=== PATIENT | female | born 1970 | race Caucasian/White ===

== ENCOUNTER 2021-07-30 00:59 | Inpatient (IN) | payer OTHER ==
[~2021-07-30] VITALS: Ht 152 cm; Wt 93.0 kg
[2021-07-30] MEDS ORDERED: ATENOLOL25 MG PO (03:32)
[2021-07-30] MEDS ORDERED: HYZAAR 100-251 EACH PO (03:32)
[2021-07-30 05:26] LABS: HEMOGLOBIN 14.8 gm/dl (12.3-15.3); RED BLOOD COUNT 4.65 M/UL (4.00-5.10); WHITE BLOOD COUNT 4.2 K/UL (4.5-11.0)
[2021-07-30 05:51] LABS: BUN/CREATININE RATIO 53 (0-10)
--- NOTE | 2021-07-30 22:07 | NUR ---
1900-ASKED PATIENT IF SHE WANTED ME TO WIPE HER OFF AND GIVE HER A BATH AND SHE REFUSED BED BATH SAID SHED RATHER HAVE A SHOWER. EXPLAINED TO PATIENT RISKS OF GETTING UP TO SHOWER AND HER OXYGEN LEVELS DROPPING. PATIENT SAID WE MAY WIPE HER OFF LATER. 2100-GOT PATIENT UP TO VOID AT [facility] AND SHE HAD USED THE BATHROOM ON HERSELF. SHE WAS VERY UPSET AND I EXPLAINED TO HER THAT SOMETIMES ACCIDENTS HAPPEN AND THAT IT WAS OKAY WE WOULD GET HER CLEANED UP. PATIENT WANTED TO MALLOY HER GOWN AND WAS UPSET THAT SHE COULDN'T SHOWER. I ONCE AGAIN EXPLAINED TO PATIENT THE RISKS OF GETTING UP TO THE SHOWER. I TOLD HER ONCE I GOT HER BACK IN THE BED THAT I WOULD CHANGE HER GOWN. 2200-PATIENT HAD TAKEN HER BP CUFF OFF HER ARM SO I WENT IN AND SHE SAID IT WAS SQUEEZING HER ARM OFF SO I EXPLAINED TO HER THAT IT WAS GOING TO GET TIGHT TO GET HER BP AND THAT SHE HAD TO KEEP THE CUFF ON SO THAT WE COULD MONITOR HER BP. PATIENT STATED THAT I WAS HOLLERING AT HER, SHE WAS ON THE PHONE WITH A FAMILY MEMBER AND WAS UPSET STATING THAT SHE WAS GOING TO SIGN HERSELF OUT TOMORROW AND HER FAMILY KEPT TELLING HER THAT SHE COULDN'T DO THAT. I TOLD PATIENT THAT I WASN'T TRYING TO SCREAM AT HER THAT I WAS JUST TRYING TO EXPLAIN TO HER THAT WE HAD TO MONITOR HER BP.
[2021-07-31 05:15] LABS: HEMOGLOBIN 14.9 gm/dl (12.3-15.3); RED BLOOD COUNT 4.74 M/UL (4.00-5.10)
[2021-07-31 05:17] LABS: WHITE BLOOD COUNT 7.4 K/UL (4.5-11.0)
[2021-07-31 06:12] LABS: BUN/CREATININE RATIO 62 (0-10)
[2021-08-01 05:05] LABS: HEMOGLOBIN 15.5 gm/dl (12.3-15.3); RED BLOOD COUNT 4.83 M/UL (4.00-5.10); WHITE BLOOD COUNT 7.3 K/UL (4.5-11.0)
[2021-08-01 05:26] LABS: BUN/CREATININE RATIO 53 (0-10)
[2021-08-02 04:41] LABS: HEMOGLOBIN 15.6 gm/dl (12.3-15.3); RED BLOOD COUNT 4.93 M/UL (4.00-5.10)
[2021-08-02 04:57] LABS: BUN/CREATININE RATIO 50 (0-10)
[2021-08-03 05:04] LABS: HEMOGLOBIN 15.8 gm/dl (12.3-15.3); RED BLOOD COUNT 4.99 M/UL (4.00-5.10); WHITE BLOOD COUNT 8.1 K/UL (4.5-11.0)
[2021-08-03 05:28] LABS: BUN/CREATININE RATIO 46 (0-10)
[2021-08-04 05:34] LABS: HEMOGLOBIN 16.4 gm/dl (12.3-15.3); RED BLOOD COUNT 5.14 M/UL (4.00-5.10); WHITE BLOOD COUNT 6.5 K/UL (4.5-11.0)
[2021-08-04 05:59] LABS: BUN/CREATININE RATIO 61 (0-10)
--- NOTE | 2021-08-05 04:44 | NUR ---
PT O2 SAT 87-92 DESPITE 100 % FIO2 ON BIPAP. MD AWARE WITH NEW ORDERS RECIEVED AND NTD. PT DOES NOT FEEL LIKE SHE NEEDS TO BE INTUBATED AT THIS TIME AND IS NOT COMPLAINING OF SOA AND DENIES ANY SYMPTOMS OF RESPIRATORY DISTRESS. MD AWARE
[2021-08-05 05:55] LABS: HEMOGLOBIN 17.5 gm/dl (12.3-15.3); RED BLOOD COUNT 5.52 M/UL (4.00-5.10)
[2021-08-05 06:26] LABS: BUN/CREATININE RATIO 45 (0-10)
[2021-08-06 04:28] LABS: HEMOGLOBIN 18.4 gm/dl (12.3-15.3); RED BLOOD COUNT 5.73 M/UL (4.00-5.10)
[2021-08-06 04:38] LABS: WHITE BLOOD COUNT 9.4 K/UL (4.5-11.0)
[2021-08-06 05:05] LABS: BUN/CREATININE RATIO 42 (0-10)
[2021-08-07 05:33] LABS: HEMOGLOBIN 17.5 gm/dl (12.3-15.3); RED BLOOD COUNT 5.49 M/UL (4.00-5.10)
[2021-08-07 05:57] LABS: WHITE BLOOD COUNT 13.8 K/UL (4.5-11.0)
[2021-08-07 06:10] LABS: BUN/CREATININE RATIO 57 (0-10)
[2021-08-08 08:43] LABS: RED BLOOD COUNT 5.28 M/UL (4.00-5.10); WHITE BLOOD COUNT 14.3 K/UL (4.5-11.0)
[2021-08-08 09:03] LABS: BUN/CREATININE RATIO 58 (0-10)
[2021-08-09 04:59] LABS: HEMOGLOBIN 15.5 gm/dl (12.3-15.3); RED BLOOD COUNT 4.83 M/UL (4.00-5.10); WHITE BLOOD COUNT 16.6 K/UL (4.5-11.0)
[2021-08-09 05:42] LABS: BUN/CREATININE RATIO 76 (0-10)
[2021-08-10 05:16] LABS: HEMOGLOBIN 14.7 gm/dl (12.3-15.3); RED BLOOD COUNT 4.63 M/UL (4.00-5.10); WHITE BLOOD COUNT 15.2 K/UL (4.5-11.0)
[2021-08-10 05:39] LABS: BUN/CREATININE RATIO 111 (0-10)
[2021-08-11 04:47] LABS: HEMOGLOBIN 13.3 gm/dl (12.3-15.3); RED BLOOD COUNT 4.22 M/UL (4.00-5.10); WHITE BLOOD COUNT 11.6 K/UL (4.5-11.0)
[2021-08-11 05:48] LABS: BUN/CREATININE RATIO 104 (0-10)
[2021-08-12 03:38] LABS: HEMOGLOBIN 13.1 gm/dl (12.3-15.3); RED BLOOD COUNT 4.1 M/UL (4.00-5.10)
[2021-08-12 03:39] LABS: WHITE BLOOD COUNT 16.2 K/UL (4.5-11.0)
[2021-08-12 04:08] LABS: BUN/CREATININE RATIO 66 (0-10)
[2021-08-13 05:11] LABS: HEMOGLOBIN 12.8 gm/dl (12.3-15.3); RED BLOOD COUNT 4.06 M/UL (4.00-5.10); WHITE BLOOD COUNT 15.5 K/UL (4.5-11.0)
[2021-08-13 05:35] LABS: BUN/CREATININE RATIO 69 (0-10)
[2021-08-14 03:12] LABS: HEMOGLOBIN 13.5 gm/dl (12.3-15.3); RED BLOOD COUNT 4.3 M/UL (4.00-5.10); WHITE BLOOD COUNT 12.4 K/UL (4.5-11.0)
[2021-08-14 03:36] LABS: BUN/CREATININE RATIO 56 (0-10)
[2021-08-15 05:36] LABS: RED BLOOD COUNT 3.86 M/UL (4.00-5.10)
[2021-08-15 05:49] LABS: BUN/CREATININE RATIO 62 (0-10)
[2021-08-16 05:13] LABS: HEMOGLOBIN 12.8 gm/dl (12.3-15.3); RED BLOOD COUNT 4.08 M/UL (4.00-5.10); WHITE BLOOD COUNT 12.3 K/UL (4.5-11.0)
[2021-08-16 06:29] LABS: BUN/CREATININE RATIO 96 (0-10)
[2021-08-17 03:56] LABS: HEMOGLOBIN 12.5 gm/dl (12.3-15.3); RED BLOOD COUNT 3.93 M/UL (4.00-5.10); WHITE BLOOD COUNT 11.1 K/UL (4.5-11.0)
[2021-08-17 04:21] LABS: BUN/CREATININE RATIO 98 (0-10)
[2021-08-18 05:35] LABS: HEMOGLOBIN 11.9 gm/dl (12.3-15.3); RED BLOOD COUNT 3.79 M/UL (4.00-5.10); WHITE BLOOD COUNT 12.5 K/UL (4.5-11.0)
[2021-08-18 06:47] LABS: BUN/CREATININE RATIO 107 (0-10)
[2021-08-19 05:13] LABS: HEMOGLOBIN 11.1 gm/dl (12.3-15.3); RED BLOOD COUNT 3.52 M/UL (4.00-5.10); WHITE BLOOD COUNT 10.9 K/UL (4.5-11.0)
[2021-08-19 05:36] LABS: BUN/CREATININE RATIO 114 (0-10)
[2021-08-20 04:48] LABS: RED BLOOD COUNT 3.29 M/UL (4.00-5.10); WHITE BLOOD COUNT 9.6 K/UL (4.5-11.0)
[2021-08-20 05:04] LABS: BUN/CREATININE RATIO 105 (0-10)
[2021-08-21 05:41] LABS: WHITE BLOOD COUNT 7.3 K/UL (4.5-11.0)
[2021-08-21 05:42] LABS: HEMOGLOBIN 12.3 gm/dl (12.3-15.3); RED BLOOD COUNT 3.8 M/UL (4.00-5.10)
[2021-08-21 06:05] LABS: BUN/CREATININE RATIO 75 (0-10)
[2021-08-22 05:45] LABS: RED BLOOD COUNT 3.9 M/UL (4.00-5.10)
[2021-08-22 05:50] LABS: WHITE BLOOD COUNT 10.5 K/UL (4.5-11.0)
[2021-08-22 06:25] LABS: BUN/CREATININE RATIO 89 (0-10)
[2021-08-23 05:47] LABS: HEMOGLOBIN 12.7 gm/dl (12.3-15.3); RED BLOOD COUNT 4.01 M/UL (4.00-5.10); WHITE BLOOD COUNT 10.6 K/UL (4.5-11.0)
[2021-08-23 06:06] LABS: BUN/CREATININE RATIO 85 (0-10)
[2021-08-24 05:23] LABS: HEMOGLOBIN 12.5 gm/dl (12.3-15.3); RED BLOOD COUNT 4.03 M/UL (4.00-5.10); WHITE BLOOD COUNT 9.7 K/UL (4.5-11.0)
[2021-08-24 05:44] LABS: BUN/CREATININE RATIO 81 (0-10)
[2021-08-25 03:59] LABS: HEMOGLOBIN 11.8 gm/dl (12.3-15.3); RED BLOOD COUNT 3.86 M/UL (4.00-5.10); WHITE BLOOD COUNT 9.6 K/UL (4.5-11.0)
[2021-08-25 04:31] LABS: BUN/CREATININE RATIO 98 (0-10)
[2021-08-26 05:52] LABS: HEMOGLOBIN 12.8 gm/dl (12.3-15.3); RED BLOOD COUNT 4.08 M/UL (4.00-5.10); WHITE BLOOD COUNT 9.7 K/UL (4.5-11.0)
[2021-08-26 05:58] LABS: BUN/CREATININE RATIO 103 (0-10)
[2021-08-27 04:51] LABS: HEMOGLOBIN 12.4 gm/dl (12.3-15.3); RED BLOOD COUNT 3.89 M/UL (4.00-5.10); WHITE BLOOD COUNT 9.4 K/UL (4.5-11.0)
[2021-08-27 05:21] LABS: BUN/CREATININE RATIO 83 (0-10)
[2021-08-28 06:04] LABS: BUN/CREATININE RATIO 76 (0-10)
== END 2021-08-28 14:55 | disposition expired | DRG 4 ==
LOC: CCU 00:59
PROVIDERS: Internal Medicine; ADMIT Internal Medicine
PROC: 5A09557 Assistance with Respiratory Ventilation, Greater than 96 Consecutive Hours, Continuous Positive Airway Pressure (ICD-10-PCS; principal; 2021-07-30)
PROC: 8E0ZXY6 Isolation (ICD-10-PCS; 2021-07-30)
PROC: XW033E5 Introduction of Remdesivir Anti-infective into Peripheral Vein, Percutaneous Approach, New Technology Group 5 (ICD-10-PCS; 2021-07-30)
PROC: 3E0333Z Introduction of Anti-inflammatory into Peripheral Vein, Percutaneous Approach (ICD-10-PCS; 2021-07-30)
PROC: XW033H5 Introduction of Tocilizumab into Peripheral Vein, Percutaneous Approach, New Technology Group 5 (ICD-10-PCS; 2021-07-30)
PROC: 5A0955A Assistance with Respiratory Ventilation, Greater than 96 Consecutive Hours, High Flow/Velocity Cannula (ICD-10-PCS; 2021-08-02)
PROC: 5A1955Z Respiratory Ventilation, Greater than 96 Consecutive Hours (ICD-10-PCS; 2021-08-06)
PROC: 02HV33Z Insertion of Infusion Device into Superior Vena Cava, Percutaneous Approach (ICD-10-PCS; 2021-08-06)
PROC: 0BH18EZ Insertion of Endotracheal Airway into Trachea, Via Natural or Artificial Opening Endoscopic (ICD-10-PCS; 2021-08-06)
PROC: 0B113F4 Bypass Trachea to Cutaneous with Tracheostomy Device, Percutaneous Approach (ICD-10-PCS; 2021-08-20)
PROC: 0DH63UZ Insertion of Feeding Device into Stomach, Percutaneous Approach (ICD-10-PCS; 2021-08-20)
PROC: 3E0G76Z Introduction of Nutritional Substance into Upper GI, Via Natural or Artificial Opening (ICD-10-PCS; 2021-08-20)
DX: A41.89 Other specified sepsis (principal); R65.21 Severe sepsis with septic shock; U07.1 COVID-19; J12.82 Pneumonia due to coronavirus disease 2019; J80 Acute respiratory distress syndrome; G93.41 Metabolic encephalopathy; J15.9 Unspecified bacterial pneumonia; E87.1 Hypo-osmolality and hyponatremia; N17.9 Acute kidney failure, unspecified; Q89.8 Other specified congenital malformations; Z66 Do not resuscitate; E66.9 Obesity, unspecified; K76.0 Fatty (change of) liver, not elsewhere classified; R59.1 Generalized enlarged lymph nodes; D75.1 Secondary polycythemia; J98.2 Interstitial emphysema; I10 Essential (primary) hypertension; E11.65 Type 2 diabetes mellitus with hyperglycemia; Z68.30 Body mass index [BMI] 30.0-30.9, adult; Z79.899 Other long term (current) drug therapy; Z79.82 Long term (current) use of aspirin; Z23 Encounter for immunization
CPT/HCPCS: ECHO; 31500; 36415; 36600; 70450; 71045; 71250; 80048; 80053; 80202; 80307; 81001; 82140; 82550; 82553; 82607; 82728; 82746; 82803; 82962; 83036; 83540; 83550; 83605; 83615; 83735; 83880; 84100; 84132; 84484; 85025; 85027; 85379; 86140; 87040; 87070; 87086; 87205; 93005; 93306; 93926; 93931; 93970; 94003; 94640; 94660; 94664; 94760; A6212; C1769; C9113; J0360; J0456; J0696; J1100; J1650; J1940; J2060; J2185; J2248; J2250; J2270; J2704; J2765; J3010; J3370; J7030; J7050; J7070; P9047; Q0249; U0002